=== PATIENT | female | born 2000 | race American Indian/Alaskan Native ===

== ENCOUNTER 2022-01-15 10:15 | Outpatient (CLI) | payer OTHER ==
[2022-01-15 10:37] VITALS: BP 112/63
== END 2022-01-15 13:31 | disposition home or self-care (01) ==
LOC: TRG 10:15 → APU 10:16 → TRG 13:31
PROVIDERS: ATTEND Obstetrics & Gynecology
DX: O46.93 Antepartum hemorrhage, unspecified, third trimester (principal); Z3A.39 39 weeks gestation of pregnancy
CPT/HCPCS: 59025